=== PATIENT | female | born 1955 | race Caucasian/White ===

== ENCOUNTER 2018-04-16 14:40 | Day surgery (SDC) | payer OTHER ==
[~2018-04-16 14:40] MED LIST: DEXAMETHASONE 4 MG/ML 5 ML INJ; EPHEDrine SULFATE 50 MG/5 ML SYG
[2018-04-16] MEDS ORDERED: ONDANSETRON 4 MG INJ (16:52)
[2018-04-16] MEDS ORDERED: CEFAZOLIN 1 GM INJ (16:52)
[2018-04-16] MEDS ORDERED: MIDAZOLAM 1 MG/ML 2 ML INJ (16:52)
[2018-04-16] MEDS ORDERED: PROPOFOL 20 ML (16:52)
[2018-04-16] MEDS ORDERED: FENTAnyl 50 MCG/ML VIAL ×2 (16:52→18:00)
[2018-04-16] MEDS ORDERED: OXYCODONE/ACETAMINOPHEN (5/325) TAB PO ×2 (17:00)
[2018-04-16] MEDS ORDERED: HYDROmorphONE 1 MG/5 ML IV SYRINGE IV ×3 (17:00)
[2018-04-16] MEDS ORDERED: ONDANSETRON 4 MG INJ IV (17:00)
== END 2018-04-16 20:30 | disposition home or self-care (01) ==
LOC: SDS 14:40
DX: N85.8 Other specified noninflammatory disorders of uterus (principal)
CPT/HCPCS: 58558; 84702; 86850; 86900; 86901; 88305